=== PATIENT | female | born 1975 | race Caucasian/White ===

== ENCOUNTER 2016-09-01 22:44 | Emergency (ER) | payer BC ==
[2016-09-01] MEDS ORDERED: CYCLOBENZAPRINE HCL 10 MG TABLET PO ONE (23:48)
[2016-09-01] MEDS ORDERED: KETOROLAC TROMETHAMINE 60 MG/2 ML VIAL IM ONE ×2 (23:48→23:50)
[2016-09-01] MEDS ORDERED: CYCLOBENZAPRINE HCL 10 MG TABLET ONE (23:50)
--- OUTSIDE RECORDS SUMMARY | 2016-09-01 23:55 | XMS REPORT | Continuity of Care Document ---
:1975 Author Organization [facility] ([facility]) Address [address] [place] [address] Phone [phone] Care Team Providers Name Role Phone Provider, No-Primary Care Primary Care Provider Unavailable Source Comments This disclosure is being made pursuant to the Care Everywhere program, applicable federal and state laws, and may not contain all informaitonavailable regarding this patient.[facility] ([facility]) Active Allergies and Adverse Reactions Allergen Noted Date Severity Reactions Comments Bupropion Urticaria (Hives) Codeine Nausea & Vomiting Current Medications Not on file Active Problems Not on file Social History Tobacco Use Types Packs/Day Years Used Date Never Assessed Last Filed Vital Signs Vital Sign Reading Time Taken Blood Pressure 132/68 03/28/2003 10:23 AM OB GYN Pulse 88 03/28/2003 10:23 AM OB GYN Temperature - - Respiratory Rate - - Height 1.63 m (5' 4.17") 03/04/2003 10:34 AM OB GYN Weight 92.398 kg (203 lb 11.2 oz) 03/28/2003 10:23 AM OB GYN Body Mass Index 34.78 03/28/2003 10:23 AM OB GYN Oxygen Saturation - - Plan of Care Health Maintenance Due Date Last Done Comments Hepatitis B Vaccine (1 of 3 - Primary Series) 1975 Tdap Vaccine 01/08/1988 Lipid Disorder Screening 1995 MMR Vaccine 1995 Td Vaccine 1995 Cervical Cancer Screening 2007 Influenza Vaccine: Seasonal (#1) 10/20/2015 Results from Last 3 Months Not on file
--- NOTE | 2016-09-02 | ERNOTE ---
Back Pain ER HPI Time Seen by Provider: 09/01/16 23:37 Source: patient Exam Limitations: no limitations Immunizations: IMMUNIZATION HX Immunizations Up to Date Yes History of Influenza Vaccine Yes Hx Pneumococcal Vaccination No Allergies/Adverse Reactions: Allergies bupropion HCl [From Wellbutrin] Allergy (Intermediate, Verified 09/01/16 22:54) Swelling (Other) codeine Allergy (Intermediate, Verified 09/01/16 22:54) Nausea Home Medications: HOME MEDICATIONS Ibuprofen [Motrin] 800 mg PO 03/31/14 [Last Taken 03/31/14 21:00] Lansoprazole [Prevacid] 30 mg PO DAILY 03/31/14 [Last Taken Unknown] Cyclobenzaprine HCl [Flexeril] 10 mg PO TID PRN #30 tab 09/01/16 [Last Taken Unknown] Narrative: Patient started to have back pain yesterday afternoon. She denies any injury and initiating event, pain radiates into her right buttock, occasional numbness in her hip. Date (Duration): 08/31/16 Quality/Severity: Reports: moderate Location of pain: Reports: lower back, radiating to lf thigh/leg Activities at Onset: Reports: none Recent Injury?: Reports: no Possible Precipitating Factor: Reports: none Modifying Factors - (Improves): Reports: supine position Modifying Factors - (Worsens): Reports: movement flexion Associated Symptoms: Denies: fever/chills, sweating, constipation/incontinence, nausea/vomiting, problems urinating, difficulty walking, lightheadedness, numbess/weakness in legs Prior Treament: Reports: similar symptoms before - gets occasional symptoms that last one day Review of Systems - Review of Systems Constitutional: Absent: recent illness, fever ENT: Absent: nose congestion, sore throat Respiratory: Absent: shortness of breath Cardiology: Absent: chest pain Gastrointestinal/Abdominal: Absent: nausea Genitourinary: Present: no symptoms reported. Absent: frequency Musculoskeletal: Present: See HPI Neurological: Present: See HPI. Absent: weakness - Patient's Past Medical History Patient History - Medical: No pertinent hx Patient History - Cardiac/Respiratory: No pertinent hx Patient History - Cancer: No Hx of Cancer Patient History - Surgical Procedures: , T & A, Other Patient History - Other: None LMP (females 10-50): other - Social History Living Situations: home Smoking Status: Current every day smoker - Immunizations Immunizations Up to Date: Yes Hx Pneumococcal Vaccination: No History of Influenza Vaccine: Yes Physical Exam - Physical Exam General Appearance: Present: wd/wn, alert, no apparent distress Respiratory: Present: no respiratory distress, normal breath sounds, no accessory muscle use, lungs clear Cardiovascular/Chest: Present: regular rate, rhythm, no murmur Back Exam: Present: normal inspection, no vertebral tenderness, muscle spasm - right lower paralumbar, pain on straight leg raise Neurological Exam: Present: alert, oriented, normal mood/affect, no motor/ sensory deficits DTR: N=norm/NB=norm/brisk/A=abs/DD=dull/dimin/HC=hyperactive: Knee (R): Normal, Knee (L): Normal, Ankle (R): Normal, Ankle (L): Normal Skin Exam: Present: normal color, warm/dry ED Progress - Vital Signs Patient's Vital Signs:: I have reviewed the patient's vital signs. Vital Signs: Vital Signs 09/01/16 22:51 Temperature 36.4 C L Pulse Rate 87 Respiratory 16 Rate Blood Pressure 145/94 O2 Sat by Pulse 100 Oximetry - Progress/Reassessment Chief Complaint: Back Pain Departure Clinical Impression: Sciatica of right side - Departure Disposition: Home self-care Condition: Good Instructions: Sciatica With Rehab-SportsMed Additional Instructions: take ibuprofen 800mg three times a day and the flexeril as needed, if your symptoms don't improve over the next week, call your doctor for follow up Referrals: Roman Shields MD [Primary Care Provider] - Prescriptions: Cyclobenzaprine HCl [Flexeril] 10 mg PO TID PRN #30 tab PRN Reason: MUSCLE SPASMS
[2016-09-02 00:03] VITALS: BP 120/78
== END 2016-09-02 00:02 | disposition home or self-care (01) ==
LOC: ER 22:44
DX: M54.41 Lumbago with sciatica, right side (principal); F17.210 Nicotine dependence, cigarettes, uncomplicated